=== PATIENT | female | born 1965 | race Caucasian/White ===

== ENCOUNTER 2017-04-26 14:07 | Emergency (ER) | payer MEDICARE, OTHER ==
[~2017-04-26] VITALS: Wt 101.8 kg
[2017-04-26] MEDS ORDERED: predniSONE 20 MG TAB PO STA (14:45)
[2017-04-26] MEDS ORDERED: IPRATROPIUM (NEB) 0.5 MG/2.5 ML AMP NEB STA (14:45)
[2017-04-26] MEDS ORDERED: LEVALBUTEROL (NEB) 1.25 MG/0.5 ML AMP INH STA (14:45)
--- NOTE | 2017-04-26 15:47 | RADRPT ---
PROCEDURE: XR Chest. CLINICAL INDICATION: chest pain TECHNIQUE: Single frontal view of the chest was obtained COMPARISON: None FINDINGS: The heart and mediastinum are within normal limits. The lungs are clear. There is no pleural effusion or pneumothorax. RPTAT: AA IMPRESSION: No acute disease. .Sánchez Alonzo MD, Date Time Electronically viewed and signed by .Sánchez Alonzo MD, on 04/26/2017 15:47 .S/
[2017-04-26] MEDS ORDERED: ALBU8.5H3 INH (16:13)
[2017-04-26] MEDS ORDERED: PRED20TA PO (16:20)
[2017-04-26] MEDS ORDERED: GUAI-637 PO (16:25)
[2017-04-26 16:40] VITALS: BP 122/73; PULSE 108; RESP 18; TEMP 98
--- NOTE | 2017-04-26 16:41 | ERD ---
ER Documentation Chief Complaint Date/Time DATE: 04/26/17 TIME: 16:33 Chief Complaint cough w chest tightness, states "bronchitis" HPI Patient is a 51-year-old female with history of asthma who presents to the emergency department for concerns of a cough with chest tightness. Patient states her symptoms started yesterday. Patient states she believes she has "bronchitis" because her mother has bronchitis at this time. Patient states when she coughs she feels as if "I am choking". Patient reports a dry cough with occasional clear sputum production. Patient does report some clear rhinorrhea. She reports using her inhaler 1.5 hours prior to arrival. Patient is a smoker. Patient denies any fevers, chills, nausea, vomiting or LOC. Patient denies any chest pain, left upper extremity pain or diaphoresis. Patient is able to tolerate p.o. fluids without any difficulty. Patient's granddaughter is also sick contact, she currently has a cold. ROS All systems reviewed and are negative except as per history of present illness. Medications Home Meds Active Scripts Guaifenesin* (Robitussin*) 100 Mg/5 Ml Syrup, 100 MG PO Q4H Y for COUGH, #1 BOT Prov:LINDSEY HUIZAR PA-C 04/26/17 Prednisone* (Prednisone*) 20 Mg Tab, 40 MG PO DAILY for 4 Days, TAB Prov:LINDSEY HUIZAR PA-C 04/26/17 Albuterol Sulfate* (Proair HFA*) 8.5 Gm Hfa.aer.ad, 2 PUFF INH Q4, #1 INHALER Prov:LINDSEY HUIZAR PA-C 04/26/17 Allergies Allergies: Coded Allergies: No Known Allergy (Unverified , 04/26/17) PMhx/Soc History of Surgery: Yes (foot surg) Anesthesia Reaction: No Hx Neurological Disorder: No Hx Respiratory Disorders: Yes (asthma) Hx Cardiac Disorders: No Hx Psychiatric Problems: No Hx Miscellaneous Medical Probl: No Hx Alcohol Use: No Hx Substance Use: No Hx Tobacco Use: No Smoking Status: Unknown if ever smoked Physical Exam Vitals Vital Signs Date Time Temp Pulse Resp B/P Pulse Ox O2 Delivery O2 Flow Rate FiO2 04/26/17 16:40 98.0 108 18 122/73 98 Room Air 04/26/17 15:05 110 22 97 21 04/26/17 14:11 99.8 116 20 117/64 96 Physical Exam GENERAL: Well-developed, well-nourished female. Appears in no acute distress. Speaking in full sentences. No abdominal retractions, no nasal flaring noted. HEAD: Normocephalic, atraumatic. No deformities or ecchymosis. EYE: Pupils equal, round, and reactive to light. EOMs intact. No conjunctival erythema. No eye discharge. ENT: External ear without any masses or tenderness. Auditory canals clear bilaterally. TM visualized bilaterally, non-erythematous, non-bulging. Nasal mucosa pink with no discharge. Oropharynx is pink without any tonsillar erythema or exudates. No uvula deviation. No kissing tonsils. NECK: Supple. No meningismus. Normal ROM of the neck. LUNG: Slight wheezing noted in bilateral lower lobes. HEART: Regular rate and rhythm. No murmurs, rubs or gallops. BACK: No midline tenderness. EXTREMITES: Equal pulses bilaterally. No peripheral clubbing, cyanosis or edema. No unilateral leg swelling. NEUROLOGIC: Alert and oriented to person, place and time. Moving all four extremities. 5/5 strength in all extremities. Normal speech. Steady gait. SKIN: Normal color. Warm and dry. No rashes or lesions. Results 24 hrs Current Medications Medications (Trade) Dose Ordered Sig/Jose David Route PRN Reason Start Time Stop Time Status Last Admin Dose Admin Ipratropium Mousie (Atrovent 0.02% (Neb)) 0.5 mg ONCE STAT NEB 04/26/17 14:45 04/26/17 14:47 DC 04/26/17 15:05 Prednisone (Prednisone) 40 mg ONCE STAT PO 04/26/17 14:45 04/26/17 14:47 DC 04/26/17 14:55 Levalbuterol (Xopenex Neb) 1.25 mg ONCE STAT INH 04/26/17 14:45 04/26/17 14:48 DC 04/26/17 15:05 Procedures/MDM ED COURSE: The patient was stable throughout ED course. I kept the patient and/or family informed of laboratory and diagnostic imaging results throughout the ED course. EKG: Read by Dr. Pollard, attending physician. EKG shows normal sinus tachycardia at a rate of 110 bpm. No arrhythmias, acute ST elevations or T wave changes were noted. DIAGNOSTIC IMAGING: Read by radiologist. DIAGNOSTIC IMAGING REPORT Patient: GABBIE AMES : 1965 Age: 51 Sex: F MR #: [id number] DOS: 04/26/17 1445 Ordering MD: LINDSEY HUIZAR PA-C Location: [facility] Room/Bed: PROCEDURE: XR Chest. CLINICAL INDICATION: chest pain TECHNIQUE: Single frontal view of the chest was obtained COMPARISON: None FINDINGS: The heart and mediastinum are within normal limits. The lungs are clear. There is no pleural effusion or pneumothorax. RPTAT: AA IMPRESSION: No acute disease. .Sánchez Alonzo MD, Date Time Electronically viewed and signed by .Sánchez Alonzo MD, MD on 04/26/2017 15: 47 .S/ CC: LINDSEY HUIZAR PA-C MEDICATIONS GIVEN: Xopenex, ipratropium breathing treatment. Prednisone. Patient tolerated medication well with no adverse reactions. MEDICAL DECISION MAKING: This is a 51-year-old female with a history of asthma presents to the ED with a cough 1 day. She does have sick contacts of her mother and granddaughter. Vital signs were reviewed. Patient was afebrile. Patient was not hypoxic. Patient was noted to be tachycardic however she did recently receive use her albuterol inhaler prior to arrival. ENT exam was normal. Lung exam revealed wheezing in bilateral lower lobes. Patient was given a breathing treatment as well as prednisone here in the emergency department. Patient reported improvement in breathing upon reexamination. Patient continued to not display any signs of respiratory distress. EKG showed sinus tachycardia, no ST elevations. Chest x-ray was unremarkable. Given these findings, the patient's presentation is most consistent with asthma exacerbation secondary to viral URI. I have a much lower clinical concern for ACS, pericarditis, pneumothorax, pleural effusion, pneumonia, meningitis, sinusitis, otitis externa, acute otitis media, strep pharyngitis, epiglottitis or peritonsillar abscess. PRESCRIPTIONS: Albuterol, prednisone, Robitussin cough syrup DISCHARGE: At this time, patient is stable for discharge and outpatient management. Patient was provided with a copy of all imaging studies obtained today. Smoking cessation advised. Supportive therapies such as OTC throat lozenges, salt water gurgles, popsicles and jello discussed. I have instructed the patient to follow-up with his/her primary care physician in 1-2 days. I have instructed the patient to promptly return to the ER for any new or worsening symptoms including increased pain, swelling, fever, nausea, vomiting, weakness or difficulty breathing. The patient and/or family expressed understanding of and agreement with this plan. All questions were answered. Home care instructions were provided. Departure Diagnosis: Primary Impression: Asthma exacerbation Additional Impression: Viral URI with cough Condition: Stable Patient Instructions: Preventing Common Respiratory Infections Referrals: [facility] YOU HAVE RECEIVED A MEDICAL SCREENING EXAM AND THE RESULTS INDICATE THAT YOU DO NOT HAVE A CONDITION THAT REQUIRES URGENT TREATMENT IN THE EMERGENCY DEPARTMENT. FURTHER EVALUATION AND TREATMENT OF YOUR CONDITION CAN WAIT UNTIL YOU ARE SEEN IN YOUR DOCTORS OFFICE WITHIN THE NEXT 1-2 DAYS. IT IS YOUR RESPONSIBILITY TO MAKE AN APPOINTMENT FOR [facility]. IF YOU HAVE A PRIMARY DOCTOR --you should call your primary doctor and schedule an appointment IF YOU DO NOT HAVE A PRIMARY DOCTOR YOU CAN CALL OUR PHYSICIAN REFERRAL HOTLINE AT IF YOU CAN NOT AFFORD TO SEE A PHYSICIAN YOU CAN CHOSE FROM THE FOLLOWING [facility] [address] [facility]. [facility] [address] [address] [facility] [address] [facility] [address] [facility]. [facility]. [address] [facility] YOU HAVE RECEIVED A MEDICAL SCREENING EXAM AND THE RESULTS INDICATE THAT YOU DO NOT HAVE A CONDITION THAT REQUIRES URGENT TREATMENT IN THE EMERGENCY DEPARTMENT. FURTHER EVALUATION AND TREATMENT OF YOUR CONDITION CAN WAIT UNTIL YOU ARE SEEN IN YOUR DOCTORS OFFICE WITHIN THE NEXT 1-2 DAYS. IT IS YOUR RESPONSIBILITY TO MAKE AN APPOINTMENT FOR FOLOW-UP CARE. IF YOU HAVE A PRIMARY DOCTOR --you should call your primary doctor and schedule and appointment IF YOU DO NOT HAVE A PRIMARY DOCTOR YOU CAN CALL OUR PHYSICIAN REFERRAL HOTLINE AT . IF YOU CAN NOT AFFORD TO SEE A PHYSICIAN YOU CAN CHOSE FROM THE FOLLOWING [facility] INSTITUTIONS: [facility] [address] [place] [address] [facility] [address] [place] [address] [facility] [address] [place] [address] Additional Instructions: Call your primary care doctor TOMORROW for an appointment during the next 1-2 days.See the doctor sooner or return here if your condition worsens before your appointment time. LINDSEY HUIZAR PA-C Apr 26, 2017 16:41
== END 2017-04-26 16:42 | disposition home or self-care (01) ==
LOC: FTE 14:07
DX: J45.901 Unspecified asthma with (acute) exacerbation (principal); J06.9 Acute upper respiratory infection, unspecified; R07.9 Chest pain, unspecified
CPT/HCPCS: 71010; 93005; 94664; 99284; J7512

== ENCOUNTER 2019-05-14 10:19 | Emergency (ER) | payer MEDICARE, OTHER ==
[~2019-05-14] VITALS: Ht 162.6 cm; Wt 107.5 kg
[~2019-05-14 10:19] MED LIST: ALBU8.5H8 INH; GUAI-637 PO; PRED20TA PO
[2019-05-14 10:31] VITALS: BP 127/71; PULSE 105; RESP 18; Ht 162.6 cm; Wt 107.5 kg
[2019-05-14] MEDS ORDERED: IPRATROPIUM (NEB) 0.5 MG/2.5 ML AMP NEB STA (11:00)
[2019-05-14] MEDS ORDERED: ALBUTEROL 0.083% (NEB) 2.5 MG/3 ML AMP NEB STA (11:00)
[2019-05-14] MEDS ORDERED: IPRATROPIUM (NEB) 0.5 MG/2.5 ML AMP INH STA (12:01)
[2019-05-14] MEDS ORDERED: DEXAMETHASONE 10 MG/ML 1 ML INJ IM STA (12:01)
[2019-05-14] MEDS ORDERED: ALBUTEROL 0.5% (NEB) 2.5 MG/0.5 ML AMP INH STA (12:01)
[2019-05-14] MEDS ORDERED: ALBU18HF INHALATION (13:22)
[2019-05-14] MEDS ORDERED: BUDE6.9H INHALATION (13:23)
[2019-05-14] MEDS ORDERED: IBUP-1542 PO (13:23)
[2019-05-14] MEDS ORDERED: BENZ-6 PO (13:23)
--- NOTE | 2019-05-14 13:24 | ERD ---
ER Documentation Chief Complaint Chief Complaint cough and fever x 5 days HPI 53-year-old female presents ED complaining of persistent cough and fever x5 days. She reports that the cough produces phlegm occasionally. She also reports chills and body aches but denies any sick contacts or recent travel. Denies any abdominal pain, nausea, vomiting, diarrhea. She reports a history of asthma in which she uses an albuterol inhaler as needed. She also reports smoking history she smokes 1 pack/day off and on for 10 years. She brings note from her sister asking for medications and symptoms that the patient is having. Course of breath or difficulty breathing. Reports previous history of this in the past when she has came to the ED and received proper treatment. ROS All systems reviewed and are negative except as per history of present illness. Medications Home Meds Active Scripts Ibuprofen* (Motrin*) 600 Mg Tab, 600 MG PO Q8, #30 TAB Prov:DANDY BURRIS PA-C 05/14/19 Benzonatate* (Tessalon Perle*) 100 Mg Capsule, 100 MG PO TID, #30 CAP Prov:YARONOSIDANDY JOSEPH PA-C 05/14/19 Budesonide-Formoterol Fumarate* (Symbicort*) 80-4.5 Mcg Hfa.aer.ad, 2 PUFF INHALATION BID, #1 BOTTLE Prov:DANDY BURRIS PA-C 05/14/19 Albuterol Sulfate* (Ventolin HFA*) 18 Gm Hfa.aer.ad, 2 PUFF INHALATION Q6H, #1 INHALER Prov:DANDY BURRIS PA-C 05/14/19 Guaifenesin* (Robitussin*) 100 Mg/5 Ml Syrup, 100 MG PO Q4H PRN for COUGH, #1 BOT Prov:LINDSEY HUIZAR PA-C 04/26/17 Prednisone* (Prednisone*) 20 Mg Tab, 40 MG PO DAILY for 4 Days, TAB Prov:LINDSEY HUIZAR PA-C 04/26/17 Albuterol Sulfate* (Proair HFA*) 8.5 Gm Hfa.aer.ad, 2 PUFF INH Q4, #1 INHALER Prov:LINDSEY HUIZAR PA-C 04/26/17 Allergies Allergies: Coded Allergies: No Known Allergy (Unverified , 04/26/17) PMhx/Soc History of Surgery: Yes (foot surg) Anesthesia Reaction: No Hx Neurological Disorder: No Hx Respiratory Disorders: Yes (asthma) Hx Cardiac Disorders: No Hx Psychiatric Problems: No Hx Miscellaneous Medical Probl: No Hx Alcohol Use: No Hx Substance Use: No Hx Tobacco Use: No Smoking Status: Never smoker FmHx Family History: No diabetes Physical Exam Vitals Vital Signs Date Temp Pulse Resp B/P (MAP) Pulse Ox O2 O2 Flow FiO2 Time Delivery Rate 05/14/19 113 18 90 12:27 05/14/19 109 18 90 11:09 05/14/19 98.7 105 18 127/71 91 10:31 (89) Physical Exam Const: No acute distress, pt smells of cigarette smoke Head: Atraumatic Eyes: Normal Conjunctiva ENT: Normal External Ears, Nose and Mouth. Neck: Full range of motion. No meningismus. Resp: Moderate wheezing throughout the lungs bilat Cardio: Regular rate and rhythm, Abd: Soft, non tender, non distended. Normal bowel sounds Skin: No petechiae or rashes Back: No midline or flank tenderness Ext: No cyanosis, or edema Neur: Awake and alert Psych: Normal Mood and Affect Results 24 hrs Current Medications Medications Dose Sig/Jose David Start Time Status Last (Trade) Ordered Route PRN Stop Time Admin Dose Reason Admin Albuterol 2.5 mg ONCE STAT 05/14/19 DC 05/14/19 (Proventil NEB 11:00 11:14 0.083% (Neb)) 05/14/19 11:02 Ipratropium 1.5 mg ONCE STAT 05/14/19 DC 05/14/19 [place] NEB 11:00 11:14 (Atrovent 05/14/19 11:02 0.02% (Neb)) Albuterol 10 mg ONCE STAT 05/14/19 DC 05/14/19 (Proventil INH 12:01 12:27 0.5% (Neb)) 05/14/19 12:04 Ipratropium 1 mg ONCE STAT 05/14/19 DC 05/14/19 [place] INH 12:01 12:27 (Atrovent 05/14/19 12:05 0.02% (Neb)) 10 mg ONCE STAT 05/14/19 DC 05/14/19 Dexamethasone IM 12:01 12:07 (Decadron) 05/14/19 12:05 Procedures/MDM ED COURSE: The patient was stable throughout ED course. I kept the patient informed of laboratory and diagnostic imaging results throughout the ED course. DIAGNOSTIC IMAGING: Read by radiologist. PROCEDURE: XR Chest. CLINICAL INDICATION: Asthma TECHNIQUE: Frontal chest x-ray was obtained. COMPARISON: Chest x-ray April 26, 2017 FINDINGS: The heart is not enlarged. Mediastinum is not widened. No hilar masses seen. Lungs are clear of any infiltrates. There is no effusion or pneumothorax. The osseous structures appear normal. IMPRESSION: No evidence for active cardiopulmonary disease. .Paxton Guerra MD, MD Date Time Electronically viewed and signed by .Paxton Guerra MD, MD on 05/14/2019 12:30 PROCEDURES: Breathing tx: respiratory consulted MEDICATIONS GIVEN: Albuterol, ipratropium, Decadron Patient tolerated medication well with no adverse reactions. Patient reported improvement in pain. MEDICAL DECISION MAKING: Patient is a 53-year-old female complaining of cough and fever x5 days. Patient is a chronic smoker in which she smokes 1 pack/day off and on for about 10 years. Patient's O2 sat was around 91 and a breathing treatment was initiated consulting respiratory. A course of albuterol ipratropium was given which only improved the symptoms slightly. Longer course of albuterol and Decadron was given to the patient which improved her wheezing significantly and states that she can breathe much better afterwards. Chest x-ray was done to rule out any infection which was unremarkable. History and Physical along with other data not c/w emergent process including pneumonia, PE, abscess, pleural effusion or pneumothorax. Patient was counseled on smoking cessation along in 3 minutes, and discharged with a new prescription for albuterol, Symbicort, Tessalon Perles, Motrin and told to follow-up with her primary care provider in the next 1 to 2 days. Vital signs were reviewed. Patient is afebrile. Patient was not hypoxic. Patient was hemodynamically stable. PRESCRIPTION: Albuterol, Symbicort, Tessalon Perles, Motrin DISCHARGE: At this time, patient is stable for discharge and outpatient management. I have instructed the patient to follow-up with his/her primary care physician in 1-2 days. I have discussed with the patient the possibility of needing to see a specialist for further workup and imaging studies if symptoms persist. I have instructed the patient to promptly return to the ER for any new or worsening symptoms including increased pain, fever, nausea, vomiting, weakness or LOC. The patient and/or family expressed understanding of and agreement with this plan. All questions were answered. Home care instructions were provided. Disclaimer: Inadvertent spelling and grammatical errors are likely due to EHR /dictation software use and do not reflect on the overall quality of patient care. Also, please note that the electronic time recorded on this note does not necessarily reflect the actual time of the patient encounter. Departure Diagnosis: Primary Impression: Asthma exacerbation Asthma severity: moderate Asthma persistence: unspecified Qualified Codes: J45.901 - Unspecified asthma with (acute) exacerbation Condition: Fair Patient Instructions: Asthma, Acute (Adult) Referrals: [facility] YOU HAVE RECEIVED A MEDICAL SCREENING EXAM AND THE RESULTS INDICATE THAT YOU DO NOT HAVE A CONDITION THAT REQUIRES URGENT TREATMENT IN THE EMERGENCY DEPARTMENT. FURTHER EVALUATION AND TREATMENT OF YOUR CONDITION CAN WAIT UNTIL YOU ARE SEEN IN YOUR DOCTORS OFFICE WITHIN THE NEXT 1-2 DAYS. IT IS YOUR RESPONSIBILITY TO MAKE AN APPOINTMENT FOR FOLOW-UP CARE. IF YOU HAVE A PRIMARY DOCTOR --you should call your primary doctor and schedule an appointment IF YOU DO NOT HAVE A PRIMARY DOCTOR YOU CAN CALL OUR PHYSICIAN REFERRAL HOTLINE AT IF YOU CAN NOT AFFORD TO SEE A PHYSICIAN YOU CAN CHOSE FROM THE FOLLOWING [facility] [address] [facility] [address] [facility] [address] [facility] [address] [facility] [address] [facility]. [facility]. [address] [facility]. [facility] YOU HAVE RECEIVED A MEDICAL SCREENING EXAM AND THE RESULTS INDICATE THAT YOU DO NOT HAVE A CONDITION THAT REQUIRES URGENT TREATMENT IN THE EMERGENCY DEPARTMENT. FURTHER EVALUATION AND TREATMENT OF YOUR CONDITION CAN WAIT UNTIL YOU ARE SEEN IN YOUR DOCTORS OFFICE WITHIN THE NEXT 1-2 DAYS. IT IS YOUR RESPONSIBILITY TO MAKE AN APPOINTMENT FOR FOLOW-UP CARE. IF YOU HAVE A PRIMARY DOCTOR --you should call your primary doctor and schedule and appointment IF YOU DO NOT HAVE A PRIMARY DOCTOR YOU CAN CALL OUR PHYSICIAN REFERRAL HOTLINE AT . IF YOU CAN NOT AFFORD TO SEE A PHYSICIAN YOU CAN CHOSE FROM THE FOLLOWING [facility] INSTITUTIONS: [facility] [address] [place] [address] [facility] [address] [place] [address] [facility] [address] [place] [address] Additional Instructions: Focusing on stopping to smoke! Use your inhalers as directed and follow up with primary care provider Call your primary care doctor TOMORROW for an appointment during the next 1-2 days.See the doctor sooner or return here if your condition worsens before your appointment time. DANDY BURRIS PA-C May 14, 2019 13:24
== END 2019-05-14 13:34 | disposition home or self-care (01) ==
LOC: FTE 10:19
DX: J45.901 Unspecified asthma with (acute) exacerbation (principal)
CPT/HCPCS: 71045; 94644; 94664; 96372; 99284; J1100